=== PATIENT | male | born 1995 | race African-American/Black ===

== ENCOUNTER 2018-07-29 15:06 | Emergency (ER) | payer SELFPAY ==
[2018-07-29] MEDS ORDERED: Ibuprofen 200 MG TAB ONE (15:28)
== END 2018-07-29 15:45 | disposition home or self-care (01) ==
LOC: ERS 15:06
DX: K04.7 Periapical abscess without sinus (principal); F17.210 Nicotine dependence, cigarettes, uncomplicated; J45.909 Unspecified asthma, uncomplicated
CPT/HCPCS: 99283

== ENCOUNTER 2019-07-08 18:21 | Emergency (ER) | payer SELFPAY ==
--- NOTE | 2019-07-08 19:15 | RAD ---
Right hand 3 views HISTORY: Right hand injury. FINDINGS: The lateral view best demonstrates a triangular 0.5 cm ossific fragment distracted from the volar base of the middle phalanx of the index finger. Margins are not well corticated and are slightly irregular. Mild joint space narrowing throughout the hand. No other fractures are apparent. IMPRESSION: Flexor tendon ossific avulsion (0.5 cm) from the volar base plate of the proximal phalanx right index finger. Favored to be an acute injury. Please correlate with flexor function of the index finger.
== END 2019-07-08 19:30 | disposition left against medical advice (07) ==
LOC: ERS 18:21
DX: Z53.21 Procedure and treatment not carried out due to patient leaving prior to being seen by health care provider (principal)